=== PATIENT | female | born 1960 | race Caucasian/White ===

== ENCOUNTER 2021-08-02 13:53 | Inpatient (IN) | payer BC ==
[2021-08-02] MEDS ORDERED: IBUPROFEN 400 MG TABLET (FP) PO PRN (14:56)
[2021-08-02] MEDS ORDERED: LORazepam 1 MG TABLET PO PRN (14:56)
[2021-08-02] MEDS ORDERED: MAG HYDROX/AL HYDROX/SIMETH 30 ML UNIT-DOSE CUP PO PRN (14:56)
[2021-08-02] MEDS ORDERED: ONDANSETRON *ODT* 4 MG TABLET SL PRN (14:56)
[2021-08-02] MEDS ORDERED: NICOTINE 10 MG CARTRIDGE (INHALER) IH PRN (14:56)
[2021-08-02] MEDS ORDERED: DICYCLOMINE HCL 10 MG CAPSULE PO PRN (14:56)
[2021-08-02] MEDS ORDERED: ACETAMINOPHEN 325 MG TABLET (FP) PO PRN ×2 (14:56)
[2021-08-02] MEDS ORDERED: BENZOCAINE/MENTHOL (CHLORASEPTIC ) LOZENGE MM PRN (14:56)
[2021-08-02] MEDS ORDERED: LOPERAMIDE HCL 2 MG CAPSULE PO PRN (14:56)
[2021-08-02] MEDS ORDERED: BISMUTH SUBSALICYLATE 262 MG/15 ML BTL PO PRN (14:56)
[2021-08-02] MEDS ORDERED: NICOTINE POLACRILEX 4 MG GUM BUC PRN (14:56)
[2021-08-02] MEDS ORDERED: NALOXONE HCL (KLOXXADO) 8 MG SPRAY NS PRN (14:56)
[2021-08-02] MEDS ORDERED: MAGNESIUM CITRATE 300 ML BOTTLE PO PRN (14:56)
[2021-08-02] MEDS ORDERED: MAGNESIUM HYDROX 2400MG/30ML ORAL SUSPENSION 30 ML CUP PO PRN (14:56)
[2021-08-02 18:13] VITALS: BMI 26.3
[2021-08-02] MEDS ORDERED: amLODIPine BESYLATE 5 MG TABLET (FP) PO ONE (19:45)
[2021-08-02] MEDS: hydrOXYzine PAMOATE 25 MG CAPSULE (FP) PO SCH ×2 (19:57→22:06)
[2021-08-02] MEDS: PRENATAL VITAMINS W/ FOLIC ACID TABLET (FP) PO SCH (20:01)
[2021-08-02] MEDS ORDERED: MELATONIN 5 MG TABLETS PO SCH (22:00)
[2021-08-02] MEDS: THIAMINE HCL 100 MG TABLET (FP) PO SCH (22:06)
[2021-08-02] MEDS: METHOCARBAMOL 500 MG TABLET PO PRN (22:07)
[2021-08-02] MEDS: LORazepam 2 MG TABLET PO SCH (22:07)
[2021-08-03] MEDS: LORazepam 2 MG TABLET PO SCH ×4 (06:12→22:24)
[2021-08-03] MEDS: hydrOXYzine PAMOATE 25 MG CAPSULE (FP) PO SCH ×5 (06:12→22:23)
[2021-08-03 10:03] LABS: CALCIUM 8.7 mg/dL (8.5-10.1)
[2021-08-03 10:04] LABS: ALBUMIN 3.1 g/dl (3.4-5.0); BLOOD UREA NITROGEN 13.2 mg/dL (7-18)
[2021-08-03 10:05] LABS: HEMATOCRIT 36.5 % (32.4-45.2); HEMOGLOBIN 12.4 GM/dL (10.7-15.3); MCH 33.7 pg (25.7-33.7); MEAN CELL VOLUME 99.2 fl (80-96); MEAN PLT VOLUME 8.9 fl (7.5-11.1); PLATELET COUNT 176 10^3/uL (134-434); RBC 3.68 M/mm3 (3.60-5.2); RDW 14.3 % (11.6-15.6); WHITE BLOOD COUNT 3.9 K/mm3 (4.0-10.0)
[2021-08-03 10:06] LABS: CREATININE 0.7 mg/dL (0.55-1.3)
[2021-08-03 10:07] LABS: BILIRUBIN,TOTAL 0.8 mg/dL (0.2-1)
[2021-08-03 10:08] LABS: TOT PROT 6.6 g/dl (6.4-8.2)
[2021-08-03] MEDS: PRENATAL VITAMINS W/ FOLIC ACID TABLET (FP) PO SCH (10:18)
[2021-08-03] MEDS: POTASSIUM CHLORIDE TABS 20 MEQ TABLET.ER (FP) PO SCH ×2 (11:14→22:23)
[2021-08-03] MEDS: METHOCARBAMOL 500 MG TABLET PO PRN (22:22)
[2021-08-03] MEDS: THIAMINE HCL 100 MG TABLET (FP) PO SCH (22:23)
[2021-08-03] MEDS: MELATONIN 5 MG TABLETS PO SCH (22:23)
[2021-08-04] MEDS: hydrOXYzine PAMOATE 25 MG CAPSULE (FP) PO SCH ×5 (05:39→22:15)
[2021-08-04] MEDS: LORazepam 1 MG TABLET PO SCH ×4 (05:40→22:16)
[2021-08-04] MEDS: POTASSIUM CHLORIDE TABS 20 MEQ TABLET.ER (FP) PO SCH ×2 (10:11→22:15)
[2021-08-04] MEDS: PRENATAL VITAMINS W/ FOLIC ACID TABLET (FP) PO SCH (10:11)
[2021-08-04 14:08] LABS: SARS-CoV-2 NAA Not Detected (Not Detected)
[2021-08-04] MEDS: MELATONIN 5 MG TABLETS PO SCH (22:15)
[2021-08-04] MEDS: THIAMINE HCL 100 MG TABLET (FP) PO SCH (22:15)
[2021-08-05] MEDS ORDERED: LORazepam 0.5 MG TABLET PO PRN
[2021-08-05] MEDS: LORazepam 0.5 MG TABLET PO SCH ×4 (07:12→22:18)
[2021-08-05] MEDS: hydrOXYzine PAMOATE 25 MG CAPSULE (FP) PO SCH ×5 (07:12→22:17)
[2021-08-05] MEDS: PRENATAL VITAMINS W/ FOLIC ACID TABLET (FP) PO SCH (10:13)
[2021-08-05] MEDS: POTASSIUM CHLORIDE TABS 20 MEQ TABLET.ER (FP) PO SCH ×2 (10:13→22:17)
[2021-08-05] MEDS: MELATONIN 5 MG TABLETS PO SCH (22:17)
[2021-08-05] MEDS: THIAMINE HCL 100 MG TABLET (FP) PO SCH (22:18)
[2021-08-06] MEDS ORDERED: LORazepam 0.5 MG TABLET PO ONE (05:00)
[2021-08-06] MEDS: hydrOXYzine PAMOATE 25 MG CAPSULE (FP) PO SCH ×2 (06:35→10:08)
[2021-08-06 09:24] VITALS: BP 142/84; PULSE 81; TEMP 98.6
[2021-08-06] MEDS: PRENATAL VITAMINS W/ FOLIC ACID TABLET (FP) PO SCH (10:08)
== END 2021-08-06 10:55 | disposition home or self-care (01) | DRG 897 ==
LOC: YASAS 13:53 → Y3N 18:27
PROVIDERS: ADMIT Allergy & Immunology; ATTEND Allergy & Immunology
PROC: HZ2ZZZZ Detoxification Services for Substance Abuse Treatment (ICD-10-PCS; principal; 2021-08-02)
DX: F10.230 Alcohol dependence with withdrawal, uncomplicated (principal); F17.210 Nicotine dependence, cigarettes, uncomplicated; F10.282 Alcohol dependence with alcohol-induced sleep disorder; F10.24 Alcohol dependence with alcohol-induced mood disorder; E78.5 Hyperlipidemia, unspecified; I10 Essential (primary) hypertension; K21.9 Gastro-esophageal reflux disease without esophagitis; K76.0 Fatty (change of) liver, not elsewhere classified; D64.9 Anemia, unspecified; R56.9 Unspecified convulsions; Z87.19 Personal history of other diseases of the digestive system; Z62.810 Personal history of physical and sexual abuse in childhood; Z91.410 Personal history of adult physical and sexual abuse
CPT/HCPCS: 36415; 80053; 85027; 86780; 93005; 93010; C9803-CS; Q0162; U0003; U0005